=== PATIENT | male | born 1980 | race Caucasian/White ===

== ENCOUNTER 2018-12-29 18:07 | Emergency (ER) | payer SELFPAY ==
[~2018-12-29] VITALS: Ht 175.3 cm; Wt 70.0 kg
[2018-12-29 18:09] VITALS: BP 122/86
== END 2018-12-29 18:23 | disposition left against medical advice (07) ==
LOC: ER 18:14
DX: S01.112A Laceration without foreign body of left eyelid and periocular area, initial encounter (principal); Z53.21 Procedure and treatment not carried out due to patient leaving prior to being seen by health care provider; Y04.0XXA Assault by unarmed brawl or fight, initial encounter; Y93.89 Activity, other specified; Y92.89 Other specified places as the place of occurrence of the external cause; Y99.8 Other external cause status